=== PATIENT | female | born 1950 | race Caucasian/White ===

== ENCOUNTER 2020-05-20 15:06 | Outpatient (REF) | payer MEDICARE, SELFPAY ==
--- NOTE | 2020-05-20 15:12 | MM_ITS ---
EXAMINATION: MM SCREENING DIGITAL BREAST TOMOSYNTHESIS, BILATERAL CLINICAL INFORMATION: Screening. Asymptomatic. The lifetime risk of breast cancer based on the Tyrer-Cuzick Model is 3%. COMPARISON: Mammography: 2019, 12/18/2017, 12/12/2016 TECHNIQUE: Digital breast tomosynthesis is performed in both the craniocaudal and mediolateral oblique views along with computer-aided detection (CAD). Synthesized 2D images are generated from the tomosynthesis. Additional left CC view is provided. FINDINGS: There are scattered areas of fibroglandular density (ACR BI-RADS breast composition Category b). There are no significant masses, abnormal calcifications, or other abnormalities. There is a benign intramammary node again seen right breast upper outer quadrant. Skin contours are smooth. MM/MM tomosynthesis screening BI IMPRESSION: No mammographic evidence of malignancy. ASSESSMENT: BI-RADS 2: Benign RECOMMENDATION: Routine annual mammography screening. This patient's information was entered into a reminder system with a target due date for their next mammogram.
== END 2020-05-20 15:07 | disposition home or self-care (01) ==
LOC: HO.MAMMO 15:06
PROVIDERS: PCP Internal Medicine; Visit Provider Internal Medicine
DX: Z12.31 Encounter for screening mammogram for malignant neoplasm of breast (principal)
CPT/HCPCS: 77063; 77067

== ENCOUNTER 2020-12-17 10:54 | Outpatient (REF) | payer MEDICARE, SELFPAY ==
--- NOTE | ~2020-12-17 | MM_ITS ---
EXAMINATION: BONE DENSITOMETRY CLINICAL INDICATION: Osteopenia. COMPARISON: Previous BD dated 10/28/2017 and baseline BD dated 07/26/2006. TECHNIQUE: Using a Target Software DXA System (software version: 13.1) manufactured by [employer]actually, dual-energy x-ray absorptiometry was performed of the lumbar spine and left hip. The images are of good technical quality. Summary results are attached. FINDINGS: AP SPINE L1-L2 (excluding L3 and L4): The data of L1-L4 has been changed to exclude the L3 and L4 vertebral bodies, because degenerative changes at these levels may cause overestimation of lumbar spine density. Current: BMD 0.969 g/cm2, Z-score 0.5, T-score -1.6, osteopenia, 1.9% decrease from previous, 11.4% decrease from baseline (<5% change is not significant). Prior: BMD 0.988 g/cm2. Baseline: BMD 1.094 g/cm2. LEFT FEMUR, NECK: Current: BMD 0.786 g/cm2, Z-score 0.1, T-score -1.8, osteopenia. Prior: BMD 0.782 g/cm2. Baseline: BMD 0.913 g/cm2. LEFT FEMUR, TOTAL: Current: BMD 0.896 g/cm2, Z-score 0.8, T-score -0.9, normal, 4.4% decrease from previous, 12.8% decrease from baseline (<5% change is not significant). Prior: BMD 0.937 g/cm2. Baseline: BMD 1.028 g/cm2. IDENTIFIED RISK FACTORS: Height loss, menopause. HISTORY OF FRACTURE: None listed. MEDICATIONS: Calcium supplements or multivitamin, vitamin D. MM/XR DEXA axial skeleton IMPRESSION: 1. DIAGNOSIS: Osteopenia based on the lowest T-score value of -1.8 in the femoral neck applying World Health Organization criteria. 2. 10-YEAR FRACTURE RISK PREDICTION, FRAX: Major osteoporotic fracture (clinical spine, forearm, hip or shoulder) 9.8%. Hip fracture 1.6%. 3. Treatment Recommendations: NOF guidelines recommend consideration for treatment in postmenopausal women and men age 50 and older presenting with the following: -A hip or vertebral (clinical or morphometric) fracture. -T-score less than or equal to -2.5 at the femoral neck or spine after appropriate evaluation to exclude secondary causes. -Low bone mass at the hip or spine and a 10-year fracture probability by FRAX of greater than or equal to 3% for hip fracture or greater than or equal to 20% for major osteoporotic fracture based on the [place] adapted WHO algorithm. 4. Other Recommendations: All treatment decisions require clinical judgment and consideration of individual patient factors, including patient preferences, comorbidities, previous drug use, risk factors not captured in the FRAX model (e.g. frailty, falls, vitamin D deficiency, increased bone turnover, interval significant decline in bone density) and possible under or overestimation of fracture risk by FRAX. Additional medical evaluation for secondary cause of low bone mineral density may be appropriate. FUTURE SCAN RECOMMENDATION: People with diagnosed cases of osteoporosis or at high risk for fracture should have regular bone mineral density tests. For patients eligible for Medicare, routine testing is allowed once every 2 years. The testing frequency can be increased to one year for patients who have rapidly progressing disease, those who are receiving or discontinuing medical therapy to restore bone mass, or have additional risk factors.
== END 2020-12-17 10:55 | disposition home or self-care (01) ==
LOC: HO.MAMMO 10:54
PROVIDERS: Visit Provider Internal Medicine
DX: Z13.820 Encounter for screening for osteoporosis (principal); M85.80 Other specified disorders of bone density and structure, unspecified site; R29.890 Loss of height; Z78.0 Asymptomatic menopausal state
CPT/HCPCS: 77080

== ENCOUNTER 2021-06-16 11:40 | Outpatient (REF) | payer MEDICARE, SELFPAY ==
--- NOTE | ~2021-06-16 | MM_ITS ---
EXAMINATION: MM SCREENING DIGITAL BREAST TOMOSYNTHESIS, BILATERAL CLINICAL INFORMATION: Screening. Asymptomatic. The lifetime risk of breast cancer based on the Tyrer-Cuzick Model is 3%. COMPARISON: Mammography: 05/20/2020, 01/02/2019, 12/18/2017 TECHNIQUE: Digital breast tomosynthesis is performed in both the craniocaudal and mediolateral oblique views along with computer-aided detection (CAD). Synthesized 2D images are generated from the tomosynthesis. FINDINGS: There are scattered areas of fibroglandular density (ACR BI-RADS breast composition Category b). There are no significant masses, abnormal calcifications, or other abnormalities. MM/MM tomosynthesis screening BI IMPRESSION: No mammographic evidence of malignancy. ASSESSMENT: BI-RADS 1: Negative RECOMMENDATION: Routine annual mammography screening. This patient's information was entered into a reminder system with a target due date for their next mammogram.
== END 2021-06-16 11:41 | disposition home or self-care (01) ==
LOC: HO.MAMMO 11:40
PROVIDERS: Visit Provider Internal Medicine
DX: Z12.31 Encounter for screening mammogram for malignant neoplasm of breast (principal)
CPT/HCPCS: 77063; 77067

== ENCOUNTER 2022-06-29 13:24 | Outpatient (REF) | payer MEDICARE, SELFPAY ==
--- NOTE | ~2022-06-29 | MM_ITS ---
EXAMINATION: MM SCREENING DIGITAL BREAST TOMOSYNTHESIS, BILATERAL CLINICAL INFORMATION: Screening. Asymptomatic. The lifetime risk of breast cancer based on the Tyrer-Cuzick Model is 3%. COMPARISON: Mammography: 06/16/2021, 05/20/2020, 01/02/2019 TECHNIQUE: Digital breast tomosynthesis is performed in both the craniocaudal and mediolateral oblique views along with computer-aided detection (CAD). Synthesized 2D images are generated from the tomosynthesis. FINDINGS: There are scattered areas of fibroglandular density (ACR BI-RADS breast composition Category b). There are no significant masses, abnormal calcifications, or other abnormalities. Parenchymal pattern is similar to prior studies. There is no developing density or architectural abnormality. There is incidental intramammary node again seen posterior upper outer right breast. The axilla and skin contours are unremarkable. No significant changes. MM/MM tomosynthesis screening BI IMPRESSION: No mammographic evidence of malignancy. ASSESSMENT: BI-RADS 2: Benign RECOMMENDATION: Routine annual mammography screening. This patient's information was entered into a reminder system with a target due date for their next mammogram.
== END 2022-06-29 13:25 | disposition home or self-care (01) ==
LOC: HO.MAMMO 13:24
PROVIDERS: Visit Provider Internal Medicine
DX: Z12.31 Encounter for screening mammogram for malignant neoplasm of breast (principal)
CPT/HCPCS: 77063; 77067

== ENCOUNTER 2023-07-06 07:50 | Outpatient (REF) | payer MEDICARE, SELFPAY | END 2023-07-06 07:51 | disposition home or self-care (01) | LOC: HO.MAMMO 07:50 | PROVIDERS: PCP Student in an Organized Health Care Education/Training Program; Visit Provider Student in an Organized Health Care Education/Training Program | DX: Z12.31 Encounter for screening mammogram for malignant neoplasm of breast (principal) | CPT/HCPCS: 77063; 77067 ==

== ENCOUNTER → 2023-07-06 08:00 | Outpatient (BNV) | payer MEDICARE, SELFPAY | PROVIDERS: PCP Student in an Organized Health Care Education/Training Program; Visit Provider Radiology Diagnostic Radiology | DX: Z12.31 Encounter for screening mammogram for malignant neoplasm of breast (principal) | CPT/HCPCS: 77063; 77067 ==

== ENCOUNTER 2024-07-17 08:16 | Day surgery (SDC) | payer MEDICARE, SELFPAY ==
[2024-07-13 13:33] VITALS: BMI 19.9
--- NOTE | 2024-07-14 10:10 | P.CONAN_ITS ---
Documented by User: Yuni Peck NP 07/14/24 10:10 HPI - Anesthesia Eval Consult details Narrative: 73yo F for Colonoscopy [facility] Past Medical History Medical History Anxiety Surgical History Surgical History History of surgery on wrist Hx of tonsillectomy H/O colonoscopy Social History Social History Household Members: Spouse Patient Tobacco Use Status: Former Tobacco user Use of substances other than those prescribed or required for medical reasons: No Are you DNR?: No Advance Directives: No Advance Directives Information Provided: Yes Nutrition Risks: No Nutritional Risk Patient : No Meds Allergies Allergy/AdvReac Type Severity Reaction Status Date / Time Sulfa (Sulfonamide Allergy Intermediate RASH Verified 07/17/24 08:53 Antibiotics) [SULFA (SULFONAMIDE ANTIBIOTICS)] Home Medications ?Medication ?Instructions ?Recorded ?Confirmed ?Last Taken ?Type lorazepam 2 mg tablet 2 mg PO BEDTIME PRN anxiety 07/13/24 07/13/24 Unknown History multivitamin 1 tab PO DAILY 07/13/24 07/13/24 Unknown History Exam Height,Weight and Vital Signs: Height 5 ft 2 in Weight 49.442 kg Assessment and Plan Assessment Anesthesia Assessment: Chart Reviewed Documented by User: Jesica Thomson MD 07/17/24 11:19 PMFSH Past Medical History Medical History Anxiety Family History Family history of problems with anesthesia: No Surgical History Surgical History History of surgery on wrist Hx of tonsillectomy H/O colonoscopy History of Problems with Anesthesia: No Social History Social History Household Members: Spouse Patient Tobacco Use Status: Former Tobacco user Use of substances other than those prescribed or required for medical reasons: No Are you DNR?: No Advance Directives: No Advance Directives Information Provided: Yes Nutrition Risks: No Nutritional Risk Patient : No Meds Allergies Allergy/AdvReac Type Severity Reaction Status Date / Time Sulfa (Sulfonamide Allergy Intermediate RASH Verified 07/17/24 08:53 Antibiotics) [SULFA (SULFONAMIDE ANTIBIOTICS)] Home Medications ?Medication ?Instructions ?Recorded ?Confirmed ?Last Taken ?Type lorazepam 2 mg tablet 2 mg PO BEDTIME PRN anxiety 07/13/24 07/13/24 Unknown History multivitamin 1 tab PO DAILY 07/13/24 07/13/24 Unknown History Exam Airway Mallampati Class: II TM Dist: >3cm Neck ROM: Full Heart: rrr Lungs: cta Assessment and Plan Final Anesthetic Review Family History of Problems with Anesthesia: No History of Problems with Anesthesia: No NPO: Yes ASA Class: II Final Preanesthetic Review: No Changes in Pt Med Stat, Meds/Allgs Chart Reviewed, Consent Obtained/Reviewed and Anes Risks/Benef Reviewed Patient Risk: Intermediate Procedure Risk: Low Anesthetic Plan Anesthetic Plan: MAC: Disposition: Standard PACU
[2024-07-17 08:27] VITALS: BMI 19.4
--- OUTSIDE RECORDS SUMMARY | 2024-07-17 08:36 | XMS_ITS | Continuity of Care Document ---
Author Organization [facility] Address [address] [place] [address]- Care Team Providers Care Die Cutter Operator Name Role Phone Wili MOON, Lacie Perez Primary Care P olena Encounter [facility] Date(s): 05/25/24 - 06/24/24 [facility] [address] [place] [phone]- Encounter Type: Triage Allergies, Adverse Reactions, Alerts Substance Criticality Severity Reaction Reaction Severity Status sulfa drugs Unable to assess criticality Unknown Active Immunizations Given and Recorded Vaccine Date Status Refusal Reason influenza virus vaccine, inactivated 03/22/24 Kwaku rded influenza virus vaccine, inactivated 04/20/23 Kwaku rded influenza virus vaccine, inactivated 03/20/22 Kwaku rded influenza virus vaccine, inactivated 04/07/21 Kwaku rded influenza virus vaccine, inactivated 1, 2 04/10/18 Recorded influenza virus vaccine, inactivated 3 04/09/17 Re corded influenza virus vaccine, inactivated 04/21/16 Kwaku rded influenza virus vaccine, inactivated 4 04/11/16 Re corded influenza virus vaccine, inactivated 5 04/10/15 Re corded influenza virus vaccine, inactivated 6 04/18/14 Re corded influenza virus vaccine, inactivated 7 04/11/12 Gi leeann influenza virus vaccine, inactivated 04/13/11 Give n influenza virus vaccine, inactivated 06/11/06 Give n tetanus/diphtheria/pertussis, acel(Tdap) 03/22/24 Recorded SARS-CoV-2(COVID-19)mRNA-LNP vac([id number]) 03/22/24 Recorded SARS-CoV-2(COVID-19)mRNA-LNP vac(juw709) 04/20/23 Recorded zoster vaccine, inactivated 09/21/23 Recorded zoster vaccine, inactivated 07/21/23 Recorded RSV vaccine preF3, recombinant 06/21/23 Recorded pneumococcal 20-valent conjugate vaccine 04/05/23 Recorded [id number] 12y+ bivalent booster vax 10/30/22 Recorded [id number] 12y+ bivalent booster vax 03/22/22 Recorded SARS-CoV-2 mRNA ([id number]) vax 10/07/21 Recorded SARS-CoV-2 (COVID-19) mRNA BNT-162b2 vac 04/07/21 Recorded SARS-CoV-2 (COVID-19) mRNA BNT-162b2 vac 09/16/20 Recorded SARS-CoV-2 (COVID-19) mRNA BNT-162b2 vac 08/26/20 Recorded Influenza Virus Vaccine (oldterm) 04/11/20 Recorde d Influenza Virus Vaccine (oldterm) 04/11/19 Recorde d Influenza Virus Vaccine (oldterm) 04/11/19 Recorde d Influenza Virus Vaccine (oldterm) 8 05/26/08 Given Influenza Virus Vaccine (oldterm) 06/09/07 Given pneumococcal 23-valent vaccine 9 09/29/19 Given pneumococcal 13-valent vaccine 08/13/17 Given tetanus-diphtheria toxoids (Td) 07/07/13 Given Influenza Vaccine (oldterm) 04/27/09 Given Tet/Diphth/Acel, Pertussis (oldterm) 11/23/08 Give n [facility] 2[facility] Comment: [facility]04/12/2018] High Dose [facility] 5Location [facility] 6[facility] 7Admin Note: PER PT AT [facility] 8Admin Note: given by brooke meléndez 9Result Comment: [facility] [id number] Medications Centrum Silver Women's By Mouth, Daily, 0 Refills, Maintenance, 09/29/19 4:05:00 PM EDT Start Date: 09/29/19 Status: Ordered Repeat number: 1 LORazepam 2 mg oral tablet 1 tablet = 2 mg, By Mouth, Daily at bedtime, PRN as needed for anxiety, ROLL CLAMP OPERATOR checked, # 28 tablet, 0Refills, Maintenance, 06/23/24 12:48:00 PM EST, Tablet, [id number], 06/25/24, 156, cm, 11/10/23 8:27:00 EDT, Height Start Date: 06/23/24 Stop Date: 07/21/24 Status: Ordered Quantity: 28.0 Unit: tablet Repeat number: 1 Indication: Anxiety disorder, unspecified Red Yeast Rice = 1,200 mg, By Mouth, Daily, 0 Refills, Maintenance, 11/10/23 8:31:00 AM EDT, Partial fill upon patient request if the prescription is for a schedule II opioid drug. Start Date: 11/10/23 Status: Ordered Repeat number: 1 Tums 500 mg oral tablet, chewable 1,000 mg, 2, tablet, By Mouth, 2 times a day, Refills 0, Maintenance, 09/29/19 4:06:00 PM EDT Start Date: 09/29/19 Status: Ordered Repeat number: 1 Problem List Condition Confirmation Course Effective Dates Status H ealth Status Informant Renal angiomyolipoma 1 Confirmed Active Anxiety disorder Confirmed 11/23/08 Active Hematuria, Unspecified 2 Confirmed 2001 Active History of adenomatous polyp of colon Confirmed 12/07/13 Active Hypercalcemia Confirmed Active Hyperlipidemia Confirmed Active Insomnia Confirmed Active Osteopenia Confirmed 01/04/09 Active Trauma and stressor-related disorder Confirmed Active Subclinical hypothyroidism Confirmed Active 1follow with [facility], renal US every 2 years 2renal angiomyolipomas Social History Social History Type Response Smoking Status Former smoker, quit more than 30 days ago; Tobacco use times per day: quit 1979; entered on: 11/05/22 Sex Sex Representation Female (finding) Patient Care team information Care Team Personnel Name: Wili MOON, Lacie Perez Position: [facility] Associate Professional Member Role: PCP Address: [address] [place] [address]. [address] [place] [address]- Telecom: Care Team Related Persons Name: LEATHA BERG Insurance Providers Guarantor name: VANIA BERG Health Plan Information #: 1 Payer: MEDICARE HMO BLUE [id number] REPLC Member Number: NA Policy Number: NA Group Number: NA
--- OUTSIDE RECORDS SUMMARY | 2024-07-17 08:36 | XMS_ITS | Continuity of Care Document ---
Author Organization [facility] Address [address] [place] [address]- Care Team Providers Care Automotive Tire Worker Name Role Phone Wili MOON, Lacie Perez Primary Care P olena Encounter [facility] Date(s): 06/14/24 - 07/14/24 [facility] [address] [place] [phone]- Encounter Type: Triage Allergies, Adverse Reactions, Alerts [...] Give n tetanus/diphtheria/pertussis, acel(Tdap) 03/22/24 Recorded SARS-CoV-2(COVID-19)mRNA-LNP vac([id number]) 03/22/24 Recorded SARS-CoV-2(COVID-19)mRNA-LNP vac(moc537) 04/20/23 Recorded zoster vaccine, inactivated 09/21/23 Recorded zoster vaccine, inactivated 07/21/23 Recorded RSV vaccine preF3, recombinant 06/21/23 Recorded pneumococcal 20-valent conjugate vaccine 04/05/23 Recorded [id number] 12y+ bivalent booster vax 10/30/22 Recorded [id number] 12y+ bivalent booster vax 03/22/22 Recorded SARS-CoV-2 mRNA (mlbwpmc-zaht-jfigx) vax 10/07/21 Recorded SARS-CoV-2 (COVID-19) mRNA BNT-162b2 [...] [facility] 5Location History: [facility] 7Admin Note: PER PT AT [facility] 8Admin Note: given by brooke meléndez 9Result Comment: [facility] [id number] Medications Centrum Silver Women's By Mouth, Daily, 0 Refills, Maintenance, 09/29/19 4:05:00 PM EDT Start Date: 09/29/19 Status: Ordered Repeat number: 1 LORazepam 2 mg oral tablet 1 tablet = 2 mg, By Mouth, Daily at bedtime, PRN as needed for anxiety, PIPING ENGINEER checked, # 28 tablet, 0Refills, Maintenance, 06/23/24 [...] Personnel Name: Wili MOON, Lacie Perez Position: [facility] Associate Professional Member Role: PCP Address: [address] [place] [address]. [address] [place] [address]- Telecom: Care Team Related Persons Name: LEATHA BERG Insurance Providers Guarantor name: VANIA BERG Health Plan Information #: 1 Payer: MEDICARE HMO BLUE [id number] REPLC Member Number: NA Policy Number: NA Group Number: NA
--- OUTSIDE RECORDS SUMMARY | 2024-07-17 08:37 | XMS_ITS ---
Author Organization [facility] Address [address] [place] [phone] Care Team Providers Care Desk Director Name Role Phone Joe Pastor MD Primary Care Provider Gwyn Miles Unavailable [phone] ALLERGIES Allergen (clinical drug ingredient) Drug/Non Drug Allergy documented on EMR Reaction Allergy Type Onset Date Status question of Sulfa (uncoded) Unknown Allergy Active REASON FOR VISIT Patient presents today for a colon screening MEDICATIONS Medication SIG (Take, Route, Frequency, Duration) Notes Start Date End Date Status Multivitamin Adult - 1 tablet Orally Onc e a day for 30 day(s) Active Yeast Formula - as directed Orally r ed rice yeast Active Ativan 1 MG 1 tablet as needed O rally once a day At bedtime Active VITAL SIGNS BMI 19.93 kg/m2 03/21/2024 Blood pressure systolic 00 mm Hg 03/21/20 24 Blood pressure diastolic 00 mm Hg 024 Height 62 in 03/21/2024 Weight 109 lbs 03/21/2024 Encounters Encounter Location Date Provider Diagnosis [facility] [address] [place] [phone] 03/21/2024 Gwyn Murray History of adenomato us polyp of colon Z86.010 ; Preprocedural examination Z01.818 and Encounter for screening for malignant neoplasm of colon Z12.11 ASSESSMENTS Encounter Date Diagnosis Assessment Notes Treatment Notes Treatment Clinical Notes 03/21/2024 History of adenomatous polyp of colon (ICD-10 - Z86.010) 03/21/2024 Preprocedural examination (ICD-10 - Z01.818) 03/21/2024 Encounter for screening for malignant neoplasm of colon (ICD-10 - Z12.11) PLAN OF TREATMENT Future Test Test Name Order Date COLONOSCOPY 03/21/2024 Next Appt Details Follow Up: prn, Reason: Provider Name:Gwyn Murray , 07/17/2024 09:30:00 AM, [address] [place] [address], [phone], Progress Notes * Examination Category Sub-Category Detail Notes General Examination GENERAL APPEARANCE: pleasant , well nourished, well developed, in no acute distress EYES: sclera non-icteric NECK/THYROID: no cervical lymphade nopathy, neck supple HEART: S1, S2 normal LUNGS: clear to auscultatio n bilaterally ABDOMEN: normal bowel sounds, no guarding or rigidity, no hepatosplenomegaly, no masses palpable, soft, nontender, nondistended. NEUROLOGIC: alert and oriented SKIN: nonjaundiced, no spi caroline angiomata. EXTREMITIES: no edema ORAL CAVITY: mucosa moist
--- OUTSIDE RECORDS SUMMARY | 2024-07-17 08:37 | XMS_ITS | Patient Health Record ---
Author Organization [facility] Address [address] [place] [address] Care Team Providers Care Tv Technician Name Role Phone Joe Pastor MD Primary Care Provider UnavailGwyn Heredia Unavailable [phone] ALLERGIES Allergen (clinical drug ingredient) Drug/Non Drug Allergy documented on EMR Reaction Allergy Type Onset Date Status question of Sulfa (uncoded) Unknown Allergy Active REASON FOR REFERRAL Referring Provider First Name Joe Referring Provider Last Name Darby Referring Provider Speciality Internal M edicine Referred Organization [facility] Referred Provider Gwyn Collazo Referred Address [address],[place], [place],[address], Referred Provider Specialty Gastroentero logy General Notes Jocelyne Krause 024 11:26:36 AM EDT > requested an [facility] referral for visit with Dr collazo on [phone] Referral Priority Routine MEDICATIONS Medication SIG (Take, Route, Frequency, Duration) Notes Start Date End Date Status Multivitamin Adult - 1 tablet Orally Onc e a day for 30 day(s) Active Yeast Formula - as directed Orally r ed rice yeast Active Ativan 1 MG 1 tablet as needed O rally once a day At bedtime Active IMMUNIZATIONS Vaccine Route Administration Date Status Comme nts Influenza Unknown 03/23/2018 Administered SOCIAL HISTORY Sex Assigned At : Social History Observation Description Sex Assigned At Unknown PROBLEMS Problem Type ICD Code Onset Dates Problem Status W/U Status Risk SNOMED Code Notes Problem Encounter for screening for malignant neoplasm of colon (Z12.11) Active confirmed 202700017 Problem History of adenomatous polyp of colon (Z86.010) Active confirmed 097894941 Problem Preprocedural examination (Z01.818) Active confirmed [id number] VITAL SIGNS Blood pressure diastolic 00 mm Hg 03/21/2024 Height 62 in 03/21/2024 Blood pressure systolic 00 mm Hg 03/21/2024 Weight 109 lbs 03/21/2024 BMI 19.93 kg/m2 03/21/2024 Encounters Encounter Location Date Provider Diagnosis [facility] Outpatient [address] [place] [id number] 07/17/2024 Gwyn Collazo [facility] [address] [place] [address] 03/21/2024 Gwyn Collazo History of adenomato us polyp of colon [...] Future Test Test Name Order Date COLONOSCOPY 10/12/2014 COLONOSCOPY 03/21/2024 Next Appt Details Provider Name:Gwyn Collazo , 07/17/2024 09:30:00 AM, [address] [place] [address] , [place], [place], [phone], Insurance Providers Payer Name Payer Address Payer Phone Subscriber Number Group Number Insured Name Patient Relationship to Insured Coverage Start Date Coverage End Date [facility] [employer]BS PROFESSIONAL CLAIMS [address] [place] [address] [id number] VANIA BERG Self - patient is the insured MEDICAL (GENERAL) HISTORY Medical History History ICD Code Denies [place],DM,CVA,Lung disease,renal dise ase Anxiety Colonoscopy in 11/2013 with Dario Richardson--flat tubular adenoma removed form the cecum--she had a negative screening colonoscopy in 2003 Colonoscopy in 12/2014 with olive story-no polyps, mild diverticulosis, small internal hemorrhoids--- questionable polyp on the ileocecal valve was removed but came back as normal mucosa Negative screening colonoscopy in 12/2018 Surgical History Surgery Date(Month/Year) Right wrist tendon repair Tonsillectomy
--- OUTSIDE RECORDS SUMMARY | 2024-07-17 08:37 | XMS_ITS ---
Author Organization [facility] Address [address] [place] [phone] Care Team Providers Care Personal Chef Name Role Phone Joe Pastor MD Primary Care Provider Unavaila Gwyn Guadarrama Unavailable [phone] REASON FOR VISIT screening Encounters Encounter Location Date Provider Diagnosis [facility] Outpatient [address] [place] [phone] 07/17/2024 Gwyn Murray PLAN OF TREATMENT Next Appt Details Provider Name:Gwyn Murray , 07/17/2024 09:30:00 AM, [address] [place] [address], [phone],
[2024-07-17 08:45] VITALS: BP 127/78; PULSE 104; RESP 16; TEMP 36.6; O2SAT 99
[2024-07-17] MEDS: Lactated Ringers 1,000 ML 100 ML IVCONT (08:53)
[2024-07-17 10:59] VITALS: BP 93/58; PULSE 98; RESP 16; TEMP 36.6; O2SAT 98
--- NOTE | 2024-07-17 11:01 | P.BOP_ITS ---
Brief Operative Note Date of Service: 07/17/24 Pre-op diagnosis: Screening Post-op diagnosis: other (Polyp) Procedure: Colonoscopy to the cecum with hot snare polypectomy Surgeon: Gwyn Murray MD Anesthesia: MAC Was an Foreman Shipping Department used for this Procedure?: No Estimated blood loss (mL): 0 Pathology: other (A. Polyp at 60cm) Condition: stable Disposition: PACU
[2024-07-17 11:18] VITALS: BP 108/66; PULSE 97; RESP 18; TEMP 36.1; O2SAT 98
--- NOTE | 2024-07-17 13:20 | OP_ITS ---
DATE OF SERVICE: 07/17/2024 SURGEON: Gwyn uMrray MD INDICATIONS: The patient presents for evaluation of personal history of tubular adenoma of the colon and colorectal cancer screening. Full consent has been obtained from her for this, including risks of bleeding and perforation. PREOPERATIVE DIAGNOSIS: POSTOPERATIVE DIAGNOSIS: PROCEDURE PERFORMED: Colonoscopy to the cecum with hot snare polypectomy. ESTIMATED BLOOD LOSS: COMPLICATIONS: ANESTHESIA: Monitored anesthesia care. ASSISTANTS: SPECIMENS: PREOPERATIVE DIAGNOSES: Colorectal cancer screening and personal history of tubular adenoma of the colon. POSTOPERATIVE DIAGNOSES: Colorectal cancer screening, personal history of tubular adenoma of the colon, colon polyp, diverticulosis, and internal hemorrhoids. DESCRIPTION OF PROCEDURE: The patient was placed in the left lateral decubitus position. The digital rectal exam revealed no abnormalities. The Olympus video pediatric colonoscope was then entered into the rectum and advanced easily to the cecum. Once in the cecum, I did identify normal-appearing cecal pouch with appendiceal orifice and a normal-appearing ileocecal valve. There was transillumination of light deep in the right lower quadrant. The entire cecum and ileocecal valve appeared normal. The scope was slowly withdrawn assessing all mucosal surfaces carefully. Preparation was excellent. At 60 cm, was a flat, but raised approximately 10 to 12 mm polyp, which was removed by hot snare polypectomy and recovered by suction. The polypectomy site appeared clean, without any sign of residual polyp nor bleeding. I did not visualize any other polyps, colitis, nor angiodysplasias. There was a moderate amount of sigmoid diverticulosis. In the rectum, scope was retroflexed, visualizing internal hemorrhoids, but no other pathology. The rectal mucosa appeared normal. The scope was straightened and withdrawn from the patient. She tolerated the procedure well and was returned to the recovery area in stable condition. IMPRESSION: 1. Colon polyp. 2. Diverticulosis. 3. Internal hemorrhoids. PLAN: The results of the pathology will be checked. I would recommend a repeat colonoscopy in 5 years. She was advised not to use any aspirin and NSAIDs for 1 week. MD KALINA Powell/WILMA / [id number]
== END 2024-07-17 11:53 | disposition home or self-care (01) ==
PROVIDERS: Visit Provider Internal Medicine
PROC: 0DJD8ZZ Inspection of Lower Intestinal Tract, Via Natural or Artificial Opening Endoscopic (ICD-10-PCS; CPT 45378; principal; 2024-07-17 09:30)
DX: Z12.11 Encounter for screening for malignant neoplasm of colon (principal); K63.5 Polyp of colon; K57.30 Diverticulosis of large intestine without perforation or abscess without bleeding; K64.8 Other hemorrhoids; Z86.0101 Personal history of adenomatous and serrated colon polyps
CPT/HCPCS: 45385; 88305; J2003; J2704

== ENCOUNTER 2024-07-18 07:59 | Outpatient (REF) | payer MEDICARE, SELFPAY ==
--- NOTE | ~2024-07-18 | MM_ITS ---
EXAMINATION: MM SCREENING DIGITAL BREAST TOMOSYNTHESIS, BILATERAL CLINICAL INFORMATION: Screening. Asymptomatic. COMPARISON: Mammography: Comparison is made with available priors TECHNIQUE: Digital breast mammography with tomosynthesis is performed in both the craniocaudal and mediolateral oblique views along with computer-aided detection (CAD). FINDINGS: There are scattered areas of fibroglandular density (ACR BI-RADS breast composition Category b). There are no significant masses, abnormal calcifications, or other abnormalities. MM/MM tomosynthesis screening BI IMPRESSION: No mammographic evidence of malignancy. ASSESSMENT: BI-RADS BI-RADS 1 - Negative RECOMMENDATION: Routine annual mammography screening. 1 year F/U This examination should not preclude the clinical evaluation of a suspicious palpable abnormality. This patient's information was entered into a reminder system with a target due date for their next mammogram. Electronically signed by: Pearl Lua DO 07/24/2024 03:29 PM [facility]
--- OUTSIDE RECORDS SUMMARY | 2024-07-18 08:03 | XMS_ITS ---
Author Organization [facility] Address [address] [place] [id number] Care Team Providers Care Woods Rider Name Role Phone Joe Pastor MD Primary Care Provider Unavaila Gwyn Guadarrama Unavailable [phone] REASON FOR VISIT screening Encounters Encounter Location Date Provider [place] [facility] [place] [address] [place] [phone] 07/17/2024 Gwyn Murray PLAN OF TREATMENT No Information
--- OUTSIDE RECORDS SUMMARY | 2024-07-18 08:03 | XMS_ITS ---
Author Organization [facility] Address [address] [place] [phone] Care Team Providers Care Physical Medicine Teacher Name Role Phone Joe Pastor MD Primary Care Provider Gwyn Miles Unavailable [phone] ALLERGIES Allergen (clinical drug ingredient) Drug/Non Drug [...] 03/21/2024 Encounters Encounter Location Date Provider Diagnosis [facility] [address] [place] [phone] 03/21/2024 Gwyn Murray History of adenomato us [...] Next Appt Details Follow Up: prn, Reason: Progress Notes * Examination Category Sub-Category Detail [...]
--- OUTSIDE RECORDS SUMMARY | 2024-07-18 08:03 | XMS_ITS | Patient Health Record ---
Author Organization [facility] Address [address] [place] [address] Care Team Providers Care Neurology Manager Name Role Phone Joe Pastor MD Primary Care Provider UnavailGwyn Heredia Unavailable [phone] ALLERGIES Allergen (clinical drug ingredient) Drug/Non Drug Allergy documented on EMR Reaction Allergy Type Onset Date Status question of Sulfa (uncoded) Unknown Allergy Active REASON FOR REFERRAL Referring Provider First Name Joe Referring Provider Last Name Darby Referring Provider Speciality Internal M edicine Referred Organization [facility] Referred Provider Gwyn Collazo Referred Address [address],[place], [place],[address], Referred Provider Specialty Gastroentero logy General Notes Jocelyne Krause 024 11:26:36 AM EDT > requested an [facility] referral for visit with Dr collazo on [phone] Referral Priority Routine MEDICATIONS Medication SIG (Take, [...] malignant neoplasm of colon (Z12.11) Active confirmed 266366278 Problem History of adenomatous polyp of colon (Z86.010) Active confirmed 180654956 Problem Preprocedural examination (Z01.818) Active confirmed [id number] VITAL SIGNS Blood pressure diastolic 00 mm Hg 03/21/2024 Height 62 in 03/21/2024 Blood pressure systolic 00 mm Hg 03/21/2024 Weight 109 lbs 03/21/2024 BMI 19.93 kg/m2 03/21/2024 Encounters Encounter Location Date Provider [place] [facility] [place] [address], [place] [phone] 07/17/2024 Gwyn Collazo [facility] [address] [place] [address] 03/21/2024 Gwyn Collazo History of adenomato us [...] Name Order Date COLONOSCOPY 10/12/2014 COLONOSCOPY 03/21/2024 Insurance Providers Payer Name Payer Address Payer Phone Subscriber Number Group Number Insured Name Patient Relationship to Insured Coverage Start Date Coverage End Date [facility] [employer] [facility] [address] [place] [address] [id number] MORENA VANIA Self - patient is the insured MEDICAL (GENERAL) HISTORY Medical History History ICD Code Denies NE,DM,CVA,Lung disease,renal dise ase Anxiety Colonoscopy in 11/2013 with Dario Richardson--flat tubular adenoma removed form the cecum--she had a negative screening colonoscopy in 2003 Colonoscopy in 12/2014 with m e-no polyps, mild diverticulosis, small internal hemorrhoids--- questionable polyp on the ileocecal valve was removed but came back as normal mucosa Negative screening colonoscopy in 12/2018 Surgical History Surgery Date(Month/Year) Right wrist tendon repair Tonsillectomy
== END 2024-07-18 08:00 | disposition home or self-care (01) ==
LOC: HO.MAMMO 07:59
PROVIDERS: PCP Physician Assistant Medical; Visit Provider Student in an Organized Health Care Education/Training Program
DX: Z12.31 Encounter for screening mammogram for malignant neoplasm of breast (principal)
CPT/HCPCS: 77063; 77067

== ENCOUNTER → 2024-07-18 08:15 | Outpatient (BNV) | payer MEDICARE, SELFPAY | PROVIDERS: PCP Physician Assistant Medical; Visit Provider Internal Medicine | DX: Z12.31 Encounter for screening mammogram for malignant neoplasm of breast (principal) | CPT/HCPCS: 77063; 77067 ==